=== PATIENT | female | born 1990 | race Caucasian/White ===

== ENCOUNTER 2018-12-14 04:36 | Inpatient (IN) ==
[2018-12-14] MEDS ORDERED: HYDROCORTISONE 30 APPL TUBE TP PRN (05:11)
[2018-12-14] MEDS ORDERED: BISACODYL 10 MG SUPP.RECT RC PRN (05:11)
[2018-12-14] MEDS ORDERED: oxyCODONE HCL/ACETAMINOPHEN 1 TAB TABLET PO PRN (05:11)
[2018-12-14] MEDS ORDERED: OXYTOCIN/DEXTROSE 5%-WATER 30 UNITS/500 ML BAG IV ONE (05:11)
[2018-12-14] MEDS ORDERED: SENNOSIDES 8.6 MG TABLET PO PRN (05:11)
[2018-12-14] MEDS ORDERED: GLYCERIN/WITCH HAZEL LEAF 40 APPL BOX TP PRN (05:11)
[2018-12-14] MEDS ORDERED: BENZOCAINE/MENTHOL 81 SPRAY CAN TP PRN (05:11)
--- NOTE | 2018-12-14 05:11 | HP ---
Chief Complaint - Chief Complaint Date of Service: 12/14/18 Time of Service: 05:03 Chief Complaint: contractions every 4 minutes History of Present Illness: The patient is a 28 year old @ 23w 3d who presented to labor and delivery stating that she had not felt well all night with cramping. She reported the cramping or contractions was consistently coming every 4 minutes. She denied vaginal bleeding or loss of fluid. The patient did not appreciate any movement. Medical History (Updated 12/13/18 @ 19:55 by Kiki Monroe MD) Anemia Onset Date: Unknown with Surgical History: Surgical History (Updated 04/26/18 @ 08:55 by Justyna Arboleda CMA) No history of previous surgery Family History: Family History (Updated 04/26/18 @ 08:56 by Justyna Arboleda CMA) Father Alive and well Mother Alive and well Social History: Preferred Language [place] Smoking Status Former smoker (Last Updated 11/28/18 @ 10:25 by Mary Maravilla MD) No Social History Section defined Review Of Systems (GEN) - Review of Systems Generalized/Overall Review: Present: No Symptoms Reported Genitourinary: Present: Other - contractions Misc: All systems neg except as marked Immunizations: IMMUNIZATION HX Immunizations Up to Date Yes Allergies/Adverse Reactions: Allergies Allergy/AdvReac Type Severity Reaction Status Date / Time No Known Allergies Allergy Verified 12/13/18 18:54 Home Medications: HOME MEDICATIONS Vits96/Iron Fum/Folic [ S] 1 tab PO DAILY 12/13/18 [Last Taken Unknown] Exam - Exam Vital Signs: 120/57 111 98% RA 37.2 Celcius Constitutional: Present: Alert, Oriented x3, Cooperative, No distress Respiratory: Present: lungs clear, normal breath sounds Cardiovascular/Chest: Present: regular rate, rhythm, no murmur Abdomen: Present: Normal bowel sounds, soft, nontender, nondistended Extremity: Present: non-tender, no calf tenderness Skin Exam: Present: normal color, warm/dry, no cyanosis Appearance: Present: appropriate appearance Eye contact: Present: cooperative Thoughts: Present: normal thought pattern Assessment/Plan - Narrative Narrative: 28 year old @ 23w 3d in labor s/p vaginal delivery Placenta delivered without difficulty and there appears to be evidence of placental abruption
[2018-12-14] MEDS: IBUPROFEN 800 MG TABLET PO PRN ×3 (05:32→22:03)
[2018-12-14] MEDS: oxyCODONE HCL/ACETAMINOPHEN 1 TAB TABLET PO PRN ×3 (05:32→22:03)
--- NOTE | 2018-12-14 05:38 | OR ---
Operative Report - Dictated Report Narrative: Date of delivery: 12/14/2018 Time of delivery: 447 Gender: female AGPARS: weight: not done Procedure: Description of the procedure: The patient arrived to labor and delivery and was noted to be delivering. When I arrived the membranes were noted to be p rotruding. I did a vaginal exam and noted the feet. With maternal expulsive efforts while guiding the feet I allowed for the breech to deliver to beyond the buttocks. I then did the standard breech manuevers and delivered both arms. The the body was held up aligned with the spine to allow for delivery of the head. With maternal expulsive efforts the head delivered without difficulty. The cord was clamped and cut and the was handed off immediately. The placenta was delivered by expression and appeared intact. Clots were noted on the placental surface which is suspicious for placental abruption. Cytotec given VT due to brisk bleeding right after delivery which resolved in less than 5 minutes. There were no lacerations. Complications: none EBL: 200 mL Specimens: placenta to pathology
[2018-12-14] MEDS ORDERED: ceFAZolin SODIUM/DEXTROSE,ISO 2 GM/50 ML BAG IV ONE (06:13)
--- NOTE | 2018-12-14 06:13 | PN ---
Progess Note - Interim Date: 12/14/18 Time: 05:58 Narrative: 12/14/18 05:58 Given the demise I had a discussion with the patient, her fiance, and the patient's best friend. I explained that she had a leukocytosis in the emergency department yesterday when she was evaluated which points to infection/chorioamnionitis leading to labor and delivery. In addition, there were clots on the placental surface which is suspicious for placental abruption. The patient's uterus was tender when I did uterine massage due to bleeding. However, the patient has not had a fever either yesterday or today. Will need to watch her closely for developing endometritis. I explained that hopefully the placenta would point towards a cause for the early delivery and that hopefully that will provide additional information to guide care for a subsequent . I also briefly discussed a cerclage as the patient had very nonspecific symptoms and by the time she arrived she was completely dilated which could be consistent with painless cervical dilation and cervical incompetence. If the placental pathology is negative then should definitely consider a cerclage in the future or if a cause is identified then serial cervical lengths should be considered. I discussed symptoms of depression and what symptoms to call for. I would also like to see Radah in the office in one week. She will be discharged tomorrow. Check CBC now to reassess the leukocytosis. Will give Ancef 2 grams for a possible UTI and also possible chorioamnionitis.
[2018-12-14 08:52] LABS: Cocaine Ur Negative (NEGATIVE); Urine Barbiturate Negative (NEGATIVE); Urine Benzodiazepines Negative (NEGATIVE); Urine Opiates Negative (NEGATIVE); Urine PCP Negative (NEGATIVE); Urine THC Negative (NEGATIVE)
[2018-12-14 08:59] LABS: Hemoglobin 10.9 gm/dL (12.5-16.0); Mean Cell Volume 90.4 fl (78-100); Mean Corpuscular Hemoglobin 30.8 pg (27-31); Mean Corpuscular Hgb Conc 34.1 g/dl (32-36); Mean Platelet Volume 10.9 fl (8-12.5); Neutrophil # 25.3 K/mm3 (1.3-6.0); Platelet Count 159 K/mm3 (150-450); Red Blood Count 3.54 M/mm3 (4.2-5.4); Red Cell Distribution Width 12.6 % (11.5-14.0); White Blood Count 28.1 K/mm3 (4.0-10.5)
[2018-12-14] MEDS: DOCUSATE SODIUM 100 MG CAPSULE PO SCH ×2 (09:00→22:02)
[2018-12-14 09:29] LABS: Total Cells Counted 100
[2018-12-14 10:04] LABS: Neutrophil 81 % (42-75)
[2018-12-14 10:05] LABS: Band 14 % (0-2.0); Lymphocyte 1 % (20-51); Monocyte 4 % (0-9); Neutrophil # 22.8 K/mm3 (1.3-6.0); Platelet Estimate Normal (NORMAL); RBC Morphology Normal (NORMAL)
[2018-12-15] MEDS: oxyCODONE HCL/ACETAMINOPHEN 1 TAB TABLET PO PRN ×2 (05:18→11:55)
[2018-12-15] MEDS: IBUPROFEN 800 MG TABLET PO PRN ×2 (05:18→11:55)
[2018-12-15 05:28] LABS: Hematocrit 31.2 % (37.0-47.0); Hemoglobin 10.4 gm/dL (12.5-16.0); Mean Cell Volume 92.9 fl (78-100); Mean Corpuscular Hgb Conc 33.3 g/dl (32-36); Mean Platelet Volume 10.4 fl (8-12.5); Neutrophil # 11.8 K/mm3 (1.3-6.0); Neutrophil % 79.5 % (42-75.0); Platelet Count 128 K/mm3 (150-450); Red Blood Count 3.36 M/mm3 (4.2-5.4); Red Cell Distribution Width 13.2 % (11.5-14.0); White Blood Count 14.8 K/mm3 (4.0-10.5)
[2018-12-15] MEDS: DOCUSATE SODIUM 100 MG CAPSULE PO SCH (09:43)
--- NOTE | 2018-12-15 10:05 | PN ---
Subjective - Date and Time Seen Date: 12/15/18 Time: 09:59 Subjective Narrative: Patient without complaints Objective Objective Narrative: See vital signs - Review of Systems Generalized/Overall Review: Reports: No Symptoms Reported Misc: All systems neg except as marked - Vitals Vitals: Last Vital Signs Temp 36.6 C 12/15/18 07:39 Pulse 85 12/15/18 07:39 Resp 18 12/15/18 07:39 BP 112/48 12/15/18 07:39 Pulse Ox 99 12/15/18 07:39 - Abnormal Lab Findings Abnormal Lab Findings: Abnormal Lab Results 12/14/18 12/15/18 Range/Units 08:31 05:25 WBC 14.8 H D (4.0-10.5) K/mm3 RBC 3.36 L (4.2-5.4) M/mm3 Hgb 10.4 L (12.5-16.0) gm/dL Hct 31.2 L (37.0-47.0) % Plt Count 128 L (150-450) K/mm3 Immature Gran % (Auto) 0.70 H (0.001-0.429) % Immature Gran # (Auto) 0.11 H (0.000-0.0310) K/mm3 Neutrophils % 79.5 H (42-75.0) % Neutrophils % (Manual) 81 H (42-75) % Band Neuts % (Manual) 14 H (0-2.0) % Lymphocytes % 13.7 L (20-51) % Lymphocytes % (Manual) 1 L (20-51) % Neutrophils # 11.8 H (1.3-6.0) K/mm3 Neutrophils # (Manual) 22.8 H (1.3-6.0) K/mm3 Lymphocytes # (Manual) 0.3 L (1.5-3.5) k/mm3 Monocytes # (Manual) 1.1 H (0.0-1.0) k/mm3 - Exam Constitutional: Present: Alert, Oriented x3, Cooperative, No distress Abdomen: Present: soft, nontender, nondistended Extremity: Present: non-tender, no calf tenderness Skin Exam: Present: normal color, warm/dry, no cyanosis Appearance: Present: appropriate appearance Eye contact: Present: cooperative Thoughts: Present: normal thought pattern Assessment/Plan Plan Narrative: PPD 1 s/p with demise Patient doing well Uterus is slightly tender but the patient has not had any fevers so she does not meet the criteria for endometritis UC was negative for UTI Leukocytosis much improved today. Platelets are decreased today so will recheck platelets The patient is inquiring regarding placental pathology and I explained that it will take a few days to come back She and her fiance do not have any additional questions today Follow-up in 1 week
[2018-12-15 10:42] LABS: Hematocrit 31.1 % (37.0-47.0); Hemoglobin 10.3 gm/dL (12.5-16.0); Mean Cell Volume 92.8 fl (78-100); Mean Corpuscular Hemoglobin 30.7 pg (27-31); Mean Corpuscular Hgb Conc 33.1 g/dl (32-36); Mean Platelet Volume 10.8 fl (8-12.5); Neutrophil # 11.5 K/mm3 (1.3-6.0); Neutrophil % 85.3 % (42-75.0); Platelet Count 137 K/mm3 (150-450); Red Blood Count 3.35 M/mm3 (4.2-5.4); Red Cell Distribution Width 13.2 % (11.5-14.0); White Blood Count 13.5 K/mm3 (4.0-10.5)
[2018-12-15 12:32] VITALS: BP 118/75
== END 2018-12-15 11:50 | disposition home or self-care (01) | DRG 805 ==
LOC: OB 04:36 → MS 07:52
PROVIDERS: ADMIT Obstetrics & Gynecology; ATTEND Obstetrics & Gynecology
CPT/HCPCS: 36415; 59025; 80307; 85007; 85025; 88307